=== PATIENT | female | born 1950 | race Caucasian/White ===

== ENCOUNTER 2024-12-23 13:44 | Outpatient (CLI) | payer MEDICARE, MEDICAID ==
--- NOTE | 2024-12-23 15:07 | RADIOLOGY REPORT ---
CLINICAL HISTORY: HEADACHES TECHNIQUE: Routine multiplanar imaging of the brain was performed without gadolinium contrast. COMPARISON: None FINDINGS: There is no abnormal restricted diffusion to suggest acute infarction. There is mild brain volume loss. There are no significant chronic small vessel ischemic foci. There is no evidence for acute ischemic changes, mass, mass effect, or extra-axial fluid collection. There is no hydrocephalus or midline shift. The cerebral sulci and subarachnoid cisterns are not effa thiago. The imaged paranasal sinuses are clear. 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 The midline structur es, including the corpus callosum, are unremarkable. The intracranial flow voids are maintained. IMPRESSION: No acute intracranial abnormality seen. No evidence for acute infarct. Mild brain volume loss.
== END 2024-12-23 23:59 | disposition home or self-care (01) ==
LOC: MRI02 13:44
PROVIDERS: ATTEND Family Medicine
DX: R51.9 Headache, unspecified (principal)
CPT/HCPCS: 70551

== ENCOUNTER 2025-02-17 12:19 | Outpatient (CLI) | payer MEDICARE, MEDICAID ==
--- NOTE | 2025-02-17 14:46 | RADIOLOGY REPORT ---
PROCEDURE: MR MRI C SPINE Indication: CERVICALGIA COMPARISON: None TECHNIQUE: Multiplanar multisequence images of the the cervical spine are obtained. FINDINGS: Cervical heights are maintained. Moderate multilevel disc space narrowing and desiccation. No prevertebral edema. No abnormal marrow edema. Atlantooccipital, atlantoaxial articulations intact. C2-3: Small disc osteophyte complex. No spinal canal, neural foraminal stenosis. C3-4: Small disc osteophyte complex narrowing the ventral CSF space. Dorsal CSF space preserved. No spinal canal stenosis. Moderate right and mild left neural foraminal stenosis secondary to facet, uncovertebral hypertrophy. C4-5: Small disc osteophyte complex narrowing ventral CSF space. Dorsal CSF space preserved. No spinal canal stenosis. Moderate bilateral neural foraminal stenosis, [id number]-left secondary to facet and uncovertebral hypertrophy. C5-6: Small disc osteophyte complex. No spinal canal stenosis. Moderate right and [id number] left neural foraminal stenosis. C6-7: Small disc osteophyte complex. No spinal canal stenosis. Mfel-ep-ilijxiev left neural foraminal stenosis. C7-T1: Small disc osteophyte complex. No spinal canal, neural foraminal stenosis. IMPRESSION: Moderate cervical degenerative disc disease. No high-grade spinal canal stenosis. Multilevel [id number]-py-eljjkhmh neural foraminal stenosis as described.
== END 2025-02-17 23:59 | disposition home or self-care (01) ==
LOC: MRI 12:19
PROVIDERS: ATTEND Family Medicine
DX: M50.30 Other cervical disc degeneration, unspecified cervical region (principal); M48.02 Spinal stenosis, cervical region
CPT/HCPCS: 72141